=== PATIENT | male | born 1965 | race Caucasian/White ===

== ENCOUNTER 2017-11-30 19:04 | Emergency (ER) | payer OTHER ==
[~2017-11-30] VITALS: Ht 182.9 cm; Wt 125.4 kg
[~2017-11-30 19:04] MED LIST: FEXO60TA PO; HYDR12.56 PO; MOTI25CH PO; PRIN20TA2 PO; ROSU10 PO; VENTAER INH
[2017-11-30 19:10] VITALS: BP 164/92; PULSE 73; RESP 18; TEMP 98.1; O2SAT 96
[2017-11-30] MEDS ORDERED: CHOLESTEROL MED (19:21)
[2017-11-30] MEDS ORDERED: HYDR12.57 PO (19:21)
[2017-11-30] MEDS ORDERED: LISI2.5T3 PO (19:21)
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
[2017-11-30] MEDS ORDERED: CYCLOBENZAPRINE HCL 10 MG TAB PO ONE (20:15)
[2017-11-30] MEDS ORDERED: ACETAMINOPHEN/HYDROcodone 325 MG/5 MG TAB PO ONE (20:15)
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
[2017-11-30] MEDS ORDERED: CYCL10TA PO (21:01)
[2017-11-30] MEDS ORDERED: NORC5TAB PO (21:01)
[2017-11-30 21:18] VITALS: BP 146/81
== END 2017-11-30 21:19 | disposition home or self-care (01) ==
LOC: PHEFT 19:04
DX: S16.1XXA Strain of muscle, fascia and tendon at neck level, initial encounter (principal); E78.00 Pure hypercholesterolemia, unspecified; I10 Essential (primary) hypertension; V89.2XXA Person injured in unspecified motor-vehicle accident, traffic, initial encounter
CPT/HCPCS: 70450; 72125